=== PATIENT | male | born 1960 | race Caucasian/White ===

== ENCOUNTER 2016-11-09 10:04 | Inpatient (IN) | payer OTHER ==
--- NOTE | 2016-11-08 18:04 | GHP ---
[f rep st] PREOP HISTORY AND PHYSICAL DATE OF ADMISSION: Date of planned admission for surgery at [facility] on Wednesday, November 09, 2016. PROBLEM: Left hip arthritis. HISTORY OF PRESENT ILLNESS: The patient is a 56-year-old man admitted for a left hip Aliyah hip resurfacing arthroplasty. I did his right BHR 7 years ago with an excellent result. He lives in [place]. His left hip has become progressively more painful over the last 3 years. Since May of 2016, it has been very painful. He has daily pain and night pain. It is painful to walk and stand. His activities are very limited. He is using a lot of ibuprofen. He has some trouble putting on his shoes and socks on the left foot. PAST MEDICAL HISTORY: He is treated for elevated cholesterol and hypertension. He also has a failed right shoulder rotator cuff repair. No history of heart disease, stents, DVT, hepatitis, or sleep apnea. CURRENT MEDICATIONS: Amlodipine, Lipitor, and losartan. DRUG ALLERGIES: None. METAL ALLERGY: None. LATEX ALLERGY: None. SOCIAL HISTORY: The patient is . 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 He does not smoke cigarettes and occasionally drinks alcohol. FAMILY HISTORY: Noncontributory. PHYSICAL EXAMINATION: VITAL SIGNS: Height 5 feet 10 inches. Weight 235 pounds. BMI 33.7. EYES: The conjunctivae and sclerae are clear. Pupils are round and reactive. MOUTH: Good oral hygiene. No loose teeth. CHEST: Clear. HEART: Regular rhythm. No murmurs. EXTREMITIES: Pertinent findings are limited to his left hip. He has full hip extension and 100 degrees of flexion. External rotation 30 degrees. Internal rotation 0 degrees. Abduction 30 degrees. IMAGING: His films show severe degenerative arthritis of the left hip. He is bone on bone. His right BHR looks excellent. IMPRESSION ON ADMISSION: 1. Left hip advanced degenerative arthritis. He is prepared for a left Aliyah hip resurfacing. 2. Seven years status post right [place] hip resurfacing with a good result. 3. Treatment for hypertension and elevated cholesterol. 4. Failed right shoulder rotator cuff repair. PLAN: He will undergo a left hip Aliyah hip resurfacing arthroplasty. The surgery has been described to him, including the risks, complications, expectations, and recovery time. I have talked to him about the risk of infection, femoral neck fracture, dislocation, and sciatic nerve injury. He also understands that he is young for hip arthroplasty and may require revision surgery in the future. I have talked to him in detail about the potential risk of metal ions in the blood and in the soft tissues around the hip joint. All his questions have been answered, and he consents to surgery. /[id number]/MODL MTDD
[2016-11-09] MEDS ORDERED: POVIDONE-IODINE 20 ML in SODIUM CL IRRIG SOLUTION 500 ML IRR ONE (13:41)
[2016-11-09] MEDS ORDERED: DEXAMETHASONE 4 MG/ML VIAL IVP ONE (13:41)
[2016-11-09] MEDS ORDERED: TRANEXAMIC ACID 2,000 MG in NS 100 ML IV ONE (13:41)
[2016-11-09] MEDS ORDERED: ROPIVACAINE 0.2% 80 MG, EPINEPHrine 0.2 MG, KETOROLAC TROMETHAMINE 30 MG in BAG 0 ML IU ONE (13:41)
[2016-11-09] MEDS ORDERED: ACETAMINOPHEN 325 MG TAB PO ONE (13:41)
[2016-11-09] MEDS ORDERED: ceFAZolin 2 GM/DEXTROSE 100 ML IV ONE (13:41)
[2016-11-09] MEDS ORDERED: FAMOTIDINE 20 MG TAB PO ONE (13:41)
[2016-11-09] MEDS ORDERED: LIDOCAINE 1% 2 ML INJ ID PRN (13:44)
[2016-11-09] MEDS ORDERED: LR 1,000 ML IV ONE (13:44)
[2016-11-09] MEDS ORDERED: LIDOCAINE 1% 2 ML INJ ONE (14:00)
[2016-11-09] MEDS ORDERED: ceFAZolin 1 GM/5 ML SYR ONE (14:34)
--- NOTE | 2016-11-09 15:00 | PDHPUP ---
History & Physical Update H&P update statement: This history and physical update is based on an assessment of the patient which was completed after admission or registration (within 24 hours), but prior to the surgery/procedure. H&P update: H&P reviewed & patient examined, no change in patient's condition since H&P completed
[2016-11-09] MEDS ORDERED: MIDAZOLAM 2 MG/2 ML VIAL ONE (15:35)
[2016-11-09] MEDS ORDERED: fentaNYL 100 MCG/2 ML INJ ONE ×2 (15:36→15:37)
[2016-11-09] MEDS ORDERED: PROPOFOL/EMULSION 500 MG/50 ML BOTTLE IV ONE (15:37)
[2016-11-09] MEDS ORDERED: fentaNYL 100 MCG/2 ML INJ IVP PRN (16:30)
[2016-11-09] MEDS ORDERED: PROMETHAZINE HCL 25 MG/ML INJ IVP PRN ×2 (16:30→17:40)
[2016-11-09] MEDS ORDERED: NALOXONE HCL 0.4 MG/ML INJ IVP PRN (16:30)
[2016-11-09] MEDS ORDERED: LR 500 ML IV PRN (16:30)
[2016-11-09] MEDS ORDERED: HYDROCODONE/APAP 5/325 TAB PO PRN (16:30)
[2016-11-09] MEDS ORDERED: ONDANSETRON 4 MG/2 ML VIAL IVP PRN ×2 (16:30→17:40)
[2016-11-09] MEDS ORDERED: LABETALOL HCL 50 MG/10 ML SYR IVP PRN (16:30)
[2016-11-09] MEDS ORDERED: MEPERIDINE 25 MG/ML SYR IVP PRN (16:30)
[2016-11-09] MEDS ORDERED: METOCLOPRAMIDE 10 MG/2 ML VIAL IVP PRN ×2 (16:30→17:40)
[2016-11-09] MEDS ORDERED: HYDROmorphONE/DILAUDID 1 MG/ML SYR IVP PRN (16:30)
--- NOTE | 2016-11-09 16:30 | PDANEPAE ---
ANE History of Present Illness 56 y/o male with HTN, hyperlipidemia, and obesity of Left hip resurfacing. No history of anesthetic problems. ANE Past Medical History - Cardiovascular History Hx Hypertension: Yes Hx Arrhythmias: No Hx Chest Pain: No Hx Coronary Artery / Peripheral Vascular Disease: No Hx CHF / Valvular Disease: No Hx Palpitations: No Cardiovascular History Comment: PCP MONITORS BP MEDS - Pulmonary History Hx COPD: No Hx Asthma/Reactive Airway Disease: No Hx Recent Upper Respiratory Infection: No Hx Oxygen in Use at Home: No Hx Sleep Apnea: No Sleep Apnea Screening Result - Last Documented: Positive Pulmonary History Comment: WIL TRIGGERS NO DIAGNOSIS - Neurologic History Hx Cerebrovascular Accident: No Hx Seizures: No Hx Dementia: No - Endocrine History Hx Diabetes: No - Renal History Hx Renal Disorders: No - Liver History Hx Hepatic Disorders: No - Neurological & Psychiatric Hx Hx Neurological and Psychiatric Disorders: No - Cancer History Hx Cancer: No - Congenital Disorder History Hx Congenital Disorders: No - GI History Hx Gastrointestinal Disorders: Yes Gastrointestinal History Comment: REFLUX - Other Health History Other Health History: WEARS READING GLASSES. RASH TO RIGHT ANKLE THAT HE USES STEROID CREAM FOR- STARTING IT NOW - Chronic Pain History Chronic Pain: Yes (LEFT HIP AND RIGHT SHOULDER) - Surgical History Prior Surgeries: RIGHT BHR WITH MATHEUS 07/01/10. DENTAL SURGERIES. RIGHT SHOULDER SURGERY 08/2015 RTC AND LABRUM- UNSUCESSFUL. ANE Review of Systems - Exercise capacity METS (RN): 4 METS ANE Patient History - Allergies Allergies/Adverse Reactions: BEES,WASP Allergy (Severe, Uncoded 06/17/10 13:16) Anaphylaxis - Home Medications Home Medications: Atorvastatin Calcium [Lipitor 20 mg (*)] 20 mg PO DAILY 11/04/16 [Last Taken 08:05] Ibuprofen [Motrin (*)] 400 mg PO Q6H PRN 11/04/16 [Last Taken 11/04/16] Losartan Potassium [Cozaar] 100 mg PO DAILY 11/04/16 [Last Taken 1 Day Ago] Omeprazole Magnesium [Prilosec Otc] 20 mg PO DAILY PRN 11/04/16 [Last Taken ] amLODIPine BESYLATE [Norvasc 10 mg (*)] 10 mg PO DAILY 11/04/16 [Last Taken 08:05] - NPO status NPO Since - Liquids (Date): 11/09/16 NPO Since - Liquids (Time): 00:00 NPO Since - Solids (Date): 11/08/16 NPO Since - Solids (Time): 19:30 - Smoking Hx Smoking Status: Former smoker - Family Anes Hx Family Hx Anesthesia Complications: NONE ANE Labs/Vital Signs - Vital Signs Blood Pressure: 155/91 Heart Rate: 94 Respiratory Rate: 18 O2 Sat (%): 92 Height: 177.8 cm Weight: 106.594 kg ANE Physical Exam - Airway Mallampati Score: Class 2 Mouth exam: normal dental/mouth exam - Pulmonary Pulmonary: no respiratory distress - Cardiovascular Cardiovascular: regular rate and rhythym - ASA Status ASA Status: III ANE Anesthesia Plan Anesthesia Plan: spinal
[2016-11-09] MEDS ORDERED: PROPOFOL 200 MG/20 ML VIAL ONE (17:16)
--- NOTE | 2016-11-09 17:24 | POSTOPPROG ---
Post Op Note Date of Operation: 11/09/16 Surgeon: Isai Parker Molecular Biology Professor: Jose Raul/Brandon Anesthesiologist: Erika Anesthesia: IV Sedation, Spinal Post-op Diagnosis: left hip degenerative arthritis Procedure: left [place] hip resurfacing arthroplasty. Inf/Abcess present in the surg proc area at time of surgery?: No EBL: [id number]
[2016-11-09] MEDS ORDERED: NS 500 ML IV PRN (17:40)
[2016-11-09] MEDS ORDERED: traMADol 50 MG TAB PO PRN (17:40)
[2016-11-09] MEDS ORDERED: BISACODYL 10 MG SUPP PR PRN (17:40)
[2016-11-09] MEDS ORDERED: POLYETHYLENE GLYCOL 3350 17 GM PKT PO PRN (17:40)
[2016-11-09] MEDS ORDERED: MAGNESIUM HYDROXIDE 30 ML UDCUP PO PRN (17:40)
[2016-11-09] MEDS ORDERED: diphenhydrAMINE 25 MG CAP PO PRN (17:40)
[2016-11-09] MEDS ORDERED: CYCLOBENZAPRINE 10 MG TAB PO PRN (17:40)
[2016-11-09] MEDS ORDERED: KETOROLAC 30 MG/1 ML SDV IVP PRN (17:40)
[2016-11-09] MEDS ORDERED: PHARMACY PAIN CONSULT 1 EA MISC PRN (17:40)
[2016-11-09] MEDS ORDERED: TEMAZEPAM 15 MG CAP PO PRN (17:40)
[2016-11-09] MEDS ORDERED: DIPHENOXYLATE/ATROPINE LOMOTIL 1 TAB PO PRN (17:40)
[2016-11-09] MEDS ORDERED: ONDANSETRON DISINTEGRATING 4 MG TAB PO PRN (17:40)
[2016-11-09] MEDS ORDERED: PROMETHAZINE HCL 25 MG SUPPR PR PRN (17:40)
[2016-11-09] MEDS ORDERED: LACTULOSE 20 GM/30 ML UDCUP PO PRN (17:40)
[2016-11-09] MEDS ORDERED: LR 1,000 ML IV SCH (18:00)
[2016-11-09] MEDS: ACETAMINOPHEN 325 MG TAB PO SCH ×2 (18:56→23:57)
[2016-11-09] MEDS: oxyCODONE IR 5 MG TAB PO PRN ×2 (20:08→23:58)
[2016-11-09] MEDS: ASPIRIN 325 MG TAB PO SCH (20:20)
[2016-11-09] MEDS: TRANEXAMIC ACID 650 MG TAB PO SCH (20:20)
[2016-11-09] MEDS: SENNOSIDES/DOCUSATE SODIUM TAB PO SCH (20:20)
[2016-11-09] MEDS: FAMOTIDINE 20 MG TAB PO SCH (20:20)
[2016-11-09] MEDS: ceFAZolin 2 GM/DEXTROSE 100 ML IV SCH (22:06)
[2016-11-10] MEDS: oxyCODONE IR 5 MG TAB PO PRN (04:24)
[2016-11-10 05:06] LABS: HEMATOCRIT 37.9 % (40.0-51.0); HEMOGLOBIN 13.1 g/dL (13.7-17.5)
[2016-11-10] MEDS: TRANEXAMIC ACID 650 MG TAB PO SCH (05:46)
[2016-11-10] MEDS: ACETAMINOPHEN 325 MG TAB PO SCH ×2 (05:46→10:57)
[2016-11-10] MEDS: ceFAZolin 2 GM/DEXTROSE 100 ML IV SCH (05:46)
[2016-11-10] MEDS: FAMOTIDINE 20 MG TAB PO SCH (07:56)
[2016-11-10] MEDS: ASPIRIN 325 MG TAB PO SCH (07:57)
[2016-11-10] MEDS: SENNOSIDES/DOCUSATE SODIUM TAB PO SCH (07:57)
[2016-11-10] MEDS ORDERED: ATORVASTATIN CALCIUM 20 MG TAB PO SCH (09:00)
[2016-11-10] MEDS ORDERED: LOSARTAN POTASSIUM 50 MG TAB PO SCH (09:00)
[2016-11-10] MEDS ORDERED: FERROUS SULFATE 140 MG TAB.ER PO SCH (09:00)
--- NOTE | 2016-11-10 10:12 | SOAPPROG ---
SOAP Progress Note Assessment/Plan: Assessment: Afebrile. Awake and alert. Moderate pain. The patient has been walking in his room. Sciatic nerve intact. Hemoglobin hematocrit are adequate. Films look good. Plan: Up with physical therapy today for ambulation and stairs. Discharge later today. 11/10/16 10:11 Objective: Vital Signs Temp Pulse Resp BP Pulse Ox 36.6 C 60 14 115/74 95 11/10/16 07:10 11/10/16 07:10 11/10/16 07:10 11/10/16 07:10 11/10/16 07:10 Laboratory Results 11/10/16 04:32 11/09/16 11/10/16 11/11/16 05:59 05:59 05:59 Intake Total 2350 1575 Output Total 650 300 Balance 1700 1275 ICD10 Worksheet Patient Problems: Problems Problem Status Onset Osteoarthritis of left hip Acute
[2016-11-10 11:21] VITALS: BP 120/85; PULSE 88; RESP 16; TEMP 98.8; O2SAT 94
--- NOTE | 2016-11-10 15:05 | GOP ---
[f rep st] OPERATIVE REPORT DATE OF OPERATION: 11/09/2016 SURGEON: Isai Parker MD AUTOMATIC FURNACE OPERATOR: Malcolm Blunt and Geoff Taylor. ANESTHESIA: Combination of Marcaine, spinal, and IV sedation. ANESTHESIOLOGIST: Dr. Amarilis James. PREOPERATIVE DIAGNOSIS: Left hip severe degenerative arthritis. POSTOPERATIVE DIAGNOSIS: Left hip severe degenerative arthritis. PROCEDURE PERFORMED: Left hip Aliyah hip resurfacing arthroplasty. FINDINGS: ESTIMATED BLOOD LOSS: 400 mL. I used a [employer] Aliyah hip resurfacing system. The acetabular component was 54 mm in diameter and press-fit. The femoral head was 48 mm and cemented. The patient was awakened from anesthesia and rolled to the supine position on his [facility]. A long-leg compressive stocking and SCD were applied to the operative leg. He wore a stocking and S CD on the opposite leg during the procedure. An abduction pillow was placed between his knees. He was taken to the PACU in satisfactory condition. There were no recognized intraoperative complicati ons. The sponge and needle count were correct on 2 occasions. Malcolm Blunt and Geoff Taylor acted as surgical assistants. Their assistance was a medical con chaves. DESCRIPTION OF PROCEDURE: The patient was given 2 g of IV Ancef preoperatively within 60 minutes of surgery. He also received IV tranexamic acid at a dose of 20 mg/kg. He was placed on the [facility] room table and given spinal anesthesia with Marcaine by Dr. James. He was then placed supine and given IV sedation. A San catheter was not used. He wore a compressive stocking and SCD on the n onoperative leg. He was rolled to the right lateral decubitus position. An axillary roll was used, and all pressure points were carefully padded. The position was secured with the pegboard table at [facility]. I was careful to lock his pelvis in a vertical position. His perineum was isolated with plastic adhesive drapes. The left hip and left lower extremity were prepped with ChloraPrep. They were draped free using sterile sheets, stockinette, and Ioban plastic drape. The [facility] ization time-out was performed to verify the correct patient identity and the correct surgical side and site. The [place] time-out was also performed. I made a 7-inch straight oblique posterolateral hip skin incision. The subcutaneous tissues were sh arply divided, and hemostasis was obtained using electrocautery. The fascia don was identified and split along the axis of its fibers. I then curved posteriorly and proximally, and split the fascia of the gluteus lorie and bluntly split the muscle fibers in line with their orientation. His sci atic nerve was identified and protected throughout the procedure. The Charnley self-retaining retractor was inserted. The external rotators and the posterior hip cap duncan were divided as separate layers at the base of the femoral neck, tagged, and reflected posterio rly. The gluteus lorie tendon was divided and tagged in order to improve exposure and release ten nadege on the sciatic nerve. The hip was dislocated posteriorly. I used a sizing gauge to check the diameter of the neck and concluded that 48 mm was the proper head size. I performed a circumferential capsulotomy. I was able to retract the femoral head anteriorly and gary periorly, and hold it out of place with appropriate retractors. The remnant of his damaged labrum w as completely excised. His acetabulum was reamed sequentially up to 54 mm. [facility] mon[facility]lock porous-coated acetabular component with an outside diameter of 54 mm. This was firmly impacted and was a good tight fit. I was careful to determine proper inclination and anteversion. I used the transverse acetabular ligament and other acetabular bony landmarks to help me properly or ient the cup. Moderate-sized anterior inferior osteophytes were removed with an osteotome and ronge ur. I was careful to leave a good lip of bone and capsule extending beyond the anterior-inferior li p of the metal cup. Using appropriate jigs and guides, I inserted a guide pin into the femoral head and neck. I was car eful to position in such a way that there would be no notching of the neck. The large sterile metal goniometer was used to check the neck shaft angle. I reamed over the guide pin and inserted the re aming guide. I then used the cylindrical reamer down to the head and neck junction. This was follo wed by the flat reamer and the chamfer reamer. The head was sized for 48 mm. There was no impingem ent or damage on the neck. I drilled a small hole in the lesser trochanter and inserted a suction c annula to create a negative pressure in the medullary canal. Small holes were drilled on the flatte bhumika chamfer surfaces of the prepared head for cement anchors. The head was thoroughly cleaned with the pulsating lavage and carefully dried. I used a CarboJet device to blow dry the cancellous surfa awilda. A single batch of Simplex cement with tobramycin was mixed. At about 50 seconds, I poured the liqui d cement into the head component, inserted it onto the femoral head and impacted it into place. Exc ess cement was removed before it hardened. The acetabulum was irrigated, cleaned and inspected, and the hip was reduced one final time. Stability and range of motion were checked. I placed my finge r along the anterior aspect of the acetabular component and flexed the hip to 110 degrees. There wa s no anterior impingement. The suction cannula on the lesser trochanter was removed. The wound was thoroughly irrigated with a dilute Betadine solution. 40 mL of the joint anesthetic cocktail was injected into the capsule, th e deep musculature, and the subcutaneous tissues along the skin edges. His sciatic nerve was reinspected and looked unharmed. The external rotators and the posterior caps ule were repaired in separate layers with #2 FiberWire sutures through drill holes in the greater tr ochanter. This provided a strong posterior capsular and external rotator repair. The gluteus maxim us tendon was repaired with 2 interrupted [id number] #2 FiberWire sutures. The fascia don was closed first with 2 interrupted [id number] #2 FiberWire sutures, followed by a running #2 arlene ed Ethicon Stratafix PDO suture. Subcutaneous tissues were closed with a running 0 barbed Ethicon S tratafix Monoderm suture. The skin was closed with a running 3-0 barbed Ethicon Stratafix Monoderm subcuticular suture. The skin edges were reapproximated and sealed with Dermabond glue. The wound was covered with a strip of Telfa, and everything was held in place with a piece of clear plastic [facility]. /[id number]/MODL
--- NOTE | 2016-11-10 20:26 | GDS ---
[f rep st] DISCHARGE SUMMARY ADMISSION DIAGNOSIS: Left hip severe degenerative arthritis. DISCHARGE DIAGNOSIS: Left hip severe degenerative arthritis. OPERATION PERFORMED: 11/09/2016, a left hip [place] hip resurfacing arthroplasty. POSTOPERATIVE COMPLICATIONS: None. CONDITION ON DISCHARGE: Improved. DESCRIPTION OF HOSPITAL COURSE: The patient was admitted to the hospital on the morning of surgery. His admission CBC was normal with the exception of a platelet count of 118,000. The same day, und er a combination of Marcaine, spinal, and IV sedation, he underwent a left hip Aliyah hip resurf acing arthroplasty. Postoperatively, he was treated with multimodal DVT prophylaxis, including aspi rin. On the first postoperative day, his hemoglobin and hematocrit were 13.1 and 37.9. He was seen by Physical Therapy and made good progress with ambulation and stairs. By the time of discharge, cristine moreno was afebrile, his wound was clean and dry, and he was independent walking. DISPOSITION: The patient discharged to his home. Continue aspirin 325 mg p.o. daily for 21 days. He may progress to full weightbearing on the left as tolerated. Use an abduction pillow in bed for 3 weeks. GARO stockings for 1 week. He has prescriptions for oxycodone and tramadol for pain contro l. I will see him back in the office in 3 weeks; he already has the appointment schedule. If there are any questions, he is to call me at the office. /[id number]/MODL
== END 2016-11-10 11:43 | disposition home or self-care (01) | DRG 470 ==
LOC: F3N 12:53
PROVIDERS: ADMIT Orthopaedic Surgery; ATTEND Orthopaedic Surgery
PROC: 0SUA0BZ Supplement Right Hip Joint, Acetabular Surface with Resurfacing Device, Open Approach (ICD-10-PCS; principal; 2016-11-09 15:30)
DX: M16.11 Unilateral primary osteoarthritis, right hip (principal); E78.00 Pure hypercholesterolemia, unspecified; I10 Essential (primary) hypertension; Z96.642 Presence of left artificial hip joint
CPT/HCPCS: 97161-GP; 97165-GO; C1713; C1769; J0171; J0690; J1100; J1885; J2250; J2704; J2795; J3010